=== PATIENT | male | born 1950 | race Caucasian/White ===

== ENCOUNTER 2019-09-01 08:49 | Day surgery (SDC) | payer MEDICARE, BC ==
[~2019-09-01] VITALS: Ht 182.9 cm; Wt 114.8 kg
[2019-09-01] VITALS (10 sets, daily range): BP systolic 125–175; BP diastolic 62–91
[2019-09-01] MEDS ORDERED: normal saline 1,000 ML IV SCH (09:15)
[2019-09-01] MEDS ORDERED: diphenhydrAMINE 25mg capsule PO PRN (09:15)
[2019-09-01 09:41] LABS: BASOPHILS # (AUTO) 0.1 X10'3 (0-0.2); BASOPHILS % (AUTO) 1.3 % (0-1); EOSINOPHILS # (AUTO) 0.2 X10'3 (0-0.9); EOSINOPHILS % (AUTO) 2.5 % (0-6); HEMATOCRIT 38.8 % (42.0-52.0); HEMOGLOBIN 12.8 g/dl (14.0-17.9); LYMPHOCYTES # (AUTO) 0.9 X10'3 (1.1-4.8); LYMPHOCYTES % (AUTO) 14.6 % (21-51); MEAN CORPUSCULAR HEMOGLOBIN 28.6 PG (27.0-31.0); MEAN CORPUSCULAR VOLUME 86.7 FL (78-98); MONOCYTES # (AUTO) 0.8 X10'3 (0-0.9); MONOCYTES % (AUTO) 12.4 % (2-12); NEUTROPHILS # (AUTO) 4.5 X10'3 (1.8-7.7); NEUTROPHILS % (AUTO) 69.2 % (42-75); PLATELET COUNT 307 X10'3 (140-440); RED BLOOD COUNT 4.48 X10'6 (4.70-6.10); RED CELL DISTRIBUTION WIDTH 16.3 % (11.5-14.5); WHITE BLOOD COUNT 6.5 X10'3 (4.5-11.0)
[2019-09-01 09:52] LABS: ALBUMIN 3.9 G/DL (3.4-5.0); ANION GAP 9 (8-16); BLOOD UREA NITROGEN 11 MG/DL (7-18); CALCIUM 9.3 MG/DL (8.5-10.1); CHLORIDE 105 MMOL/L (99-107); GLUCOSE 119 MG/DL (70-104); MAGNESIUM 1.7 MG/DL (1.5-2.4); POTASSIUM 3.9 MMOL/L (3.5-5.1); SODIUM 141 MMOL/L (135-145); TOTAL CARBON DIOXIDE 27.5 MMOL/L (24-32); eGFR 66 ML/MIN
[2019-09-01] MEDS ORDERED: PANT-47 PO (10:21)
[2019-09-01] MEDS ORDERED: METO50TA7 PO (10:21)
[2019-09-01] MEDS ORDERED: MULT-955 PO (10:21)
[2019-09-01] MEDS ORDERED: GLUC-95 PO (10:21)
[2019-09-01] MEDS ORDERED: RIVA20TA PO (10:21)
[2019-09-01] MEDS ORDERED: LOSA1TAB41 PO (10:21)
[2019-09-01] MEDS ORDERED: fentaNYL/PF 50MCG/1 ML 2ML syringe ONE (10:31)
[2019-09-01] MEDS ORDERED: iohexol 350MG/ML 100ml bottle IV ONE (10:31)
[2019-09-01] MEDS ORDERED: midazolam 2 mg/2 ml injection ONE ×2 (10:31→11:36)
[2019-09-01] MEDS ORDERED: iohexol 350 MG/ML 50ML vial IV ONE (10:31)
[2019-09-01] MEDS ORDERED: vancomycin 1,000mg inj ONE (10:52)
[2019-09-01] MEDS ORDERED: ceFAZolin 1000mg inj ONE (10:52)
[2019-09-01] MEDS ORDERED: LIDOcaine 1% W/epiNEPHrine 1:100,000 20ml vial ONE (10:54)
[2019-09-01] MEDS ORDERED: verapamil 2.5 mg/ml inj IV ONE (11:38)
[2019-09-01] MEDS ORDERED: nitroGLYCERIN-Tridil 50MG/D5W 250 ML IV ONE (11:38)
[2019-09-01] MEDS ORDERED: heparin 1,000unit/ml 10ml vial 10 ML ONE (11:38)
[2019-09-01] MEDS ORDERED: HYDROcodone/acetaminophen 5mg/325mg tablet PO PRN (12:45)
[2019-09-01] MEDS ORDERED: OXAZEpam 15mg capsule PO PRN (12:45)
[2019-09-01] MEDS ORDERED: ondansetron/PF 4mg/2ml inj IV PRN (12:45)
[2019-09-01] MEDS ORDERED: HYDROcodone/acetaminophen 10/325mg tab PO PRN (12:45)
[2019-09-01] MEDS ORDERED: proCHLORperazine 10 MG/2 ml inj IV PRN (12:45)
== END 2019-09-01 15:45 | disposition home or self-care (01) ==
LOC: SSTAY O 08:49
PROVIDERS: ATTEND Internal Medicine Cardiovascular Disease
DX: R06.09 Other forms of dyspnea (principal); I43 Cardiomyopathy in diseases classified elsewhere; I10 Essential (primary) hypertension; I48.0 Paroxysmal atrial fibrillation; D58.2 Other hemoglobinopathies; Z85.46 Personal history of malignant neoplasm of prostate; Z90.49 Acquired absence of other specified parts of digestive tract; Z95.0 Presence of cardiac pacemaker; Z98.890 Other specified postprocedural states; Z72.89 Other problems related to lifestyle
CPT/HCPCS: 36415; 80048; 83735; 85025; 85610; 93005; 93306; 93458; 99152; 99153; C1769; C1894; J1644; J2250; J3010; J7030; Q0163; Q9967; A4620; A5120; A6258; C1760; J0690; J3370; J3490